=== PATIENT | female | born 1955 | race Caucasian/White ===

== ENCOUNTER → 2023-05-15 11:22 | Outpatient (BNVA) | payer MEDICARE, SELFPAY | PROVIDERS: Visit Provider Emergency Medicine | DX: S99.912A Unspecified injury of left ankle, initial encounter (principal); X58.XXXA Exposure to other specified factors, initial encounter; M79.89 Other specified soft tissue disorders; M25.472 Effusion, left ankle | CPT/HCPCS: 73610 ==